=== PATIENT | male | born 1980 | race Caucasian/White ===

== ENCOUNTER → 2017-10-07 | Outpatient (CLI) | payer BC, OTHER | LOC: CAT 10:20 | DX: R51 Headache (principal) ==

== ENCOUNTER → 2020-04-04 | Outpatient (CLI) | payer OTHER | LOC: CAT 15:28 | PROVIDERS: ATTEND Family Medicine | DX: Z13.6 Encounter for screening for cardiovascular disorders (principal); I25.10 Atherosclerotic heart disease of native coronary artery without angina pectoris; E78.00 Pure hypercholesterolemia, unspecified ==